=== PATIENT | male | born 1980 | race Caucasian/White ===

== ENCOUNTER → 2020-09-23 11:41 | Outpatient (BNVA) | payer MEDICAID, SELFPAY | PROVIDERS: Visit Provider Nurse Practitioner Family | DX: Z20.828 Contact with and (suspected) exposure to other viral communicable diseases (principal) | CPT/HCPCS: 87635 ==

== ENCOUNTER 2023-04-02 23:07 | Emergency (ER) | payer MEDICAID, SELFPAY ==
[2023-04-02 23:08] VITALS: BMI 33.6
[2023-04-02 23:09] VITALS: BP 120/79; PULSE 81; RESP 16; TEMP 36.5; O2SAT 98
--- NOTE | 2023-04-02 23:15 | XRR_ITS ---
PROCEDURE INFORMATION: Exam: XR Chest Exam date and time: 04/02/2023 11:19 PM Age: 43 years old Clinical indication: Pain; Chest pressure; Additional info: Cp TECHNIQUE: Imaging protocol: Radiologic exam of the chest. Views: 1 view. COMPARISON: CT chest abdpel w/*[id number] 06/29/2017 7:42 PM FINDINGS: Lungs: Right lower lobe atelectasis versus minimal infiltrate suspected. Pleural spaces: Unremarkable. No pleural effusion. No pneumothorax. Heart/Mediastinum: Unremarkable. No cardiomegaly. Bones/joints: Unremarkable. XR/XR chest 1V portable [id number] IMPRESSION: Right lower lobe atelectasis versus minimal infiltrate suspected.
--- NOTE | 2023-04-02 23:16 | ECG_ITS ---
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 Measurements Intervals [place] Rate: 86 P: 16 FL: 165 QRS: 19 QRSD: 90 T: 66 QT: 360 QTc: 433 Interpretive Statements SINUS RHYTHM NONSPECIFIC T-WAVE ABNORMALITY Compared to ECG 12/15/2016 23:44:28 T-wave abnormality now present Electronically Signed On 04-03-2023 16:44:21 CDT by Cameron Adler M.D. [email or web address].[employer]/store/[id number]
[2023-04-02 23:30] VITALS: BP 113/78; PULSE 81; RESP 14; O2SAT 91
[2023-04-02 23:39] LABS: Basophils # 0.1 10^3/uL (0.0-0.1); Basophils % 0.5 %; Eosinophils # 0.2 10^3/uL (0.0-0.8); Eosinophils % 1.2 %; Hematocrit 42.8 % (42.0-52.0); Hemoglobin 14.2 g/dL (11.7-16.6); Lymphocytes # 4.5 10^3/uL (0.8-4.8); Lymphocytes % 36.1 %; Mean Corpuscular HGB Conc 33.2 g/dL (30.0-36.0); Mean Corpuscular Volume 87.3 fl (80-94); Mean Platelet Volume 9.5 fL (7.4-10.4); Monocytes % 7.9 %; Neutrophils # 6.69 10^3/uL (1.8-7.7); Neutrophils % 53.7 %; Nucleated Red Blood Cells % 0 %; Platelet Count 310 10^3/cmm (130-400); Red Cell Distribution Width 14.4 % (12.1-15.1); White Blood Count 12.5 10^3/uL (4.0-10.0)
[2023-04-03] VITALS: BP 127/84; PULSE 84; RESP 16; O2SAT 95
--- NOTE | 2023-04-03 | ED_ITS ---
HPI - Chest Pain General: Chief Complaint: Chest Pain Stated Complaint: CP Time Seen by Provider: 04/02/23 23:11 Source: patient History of Present Illness: 43-year-old male with no prior history of coronary disease. He tells me he had a stress test a few days ago, but does not know the results. He presents with stabbing epigastric/substernal pain while at rest in bed playing with his grandson who is a . No shortness of breath. No nausea or diaphoresis. Pain is down to a 2 out of 10 currently after aspirin in the ambulance. No other medications were given MD complaint: chest pain Pertinent past history: other Onset (ago): hour(s) Timing of current episode: constant Prior episodes: No Onset: during rest Pain location: substernal and epigastric Pain radiation: none Quality: sharp Exacerbating factors: nothing Associated symptoms: Deny diaphoresis, dyspnea, fever(s), leg edema, nausea, palpitations, syncope or vomiting Treatment prior to arrival: aspirin Review of Systems Const: Denies: fever(s) or diaphoresis ENMT: Denies: throat pain Card: Reports: chest pain; Denies: palpitations or syncope Resp: Denies: dyspnea GI: Denies: nausea or vomiting : Denies: flank pain Musc: Reports: other (Right shoulder pain from previous fracture) Skin/Breast: Denies: rash PFS ED PFSH: Social History Smoking and tobacco status: current every day smoker Lives independently: Yes Household members: spouse Marital status: Current occupational status: employed 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 Physical Exam Const: COMMON NORMALS: no acute distress GENERAL APPEARANCE: cooperative; not ill appearing and not frail appearing HENMT: COMMON NORMALS: normocephalic, atraumatic and Normal external nose present HEAD & SCALP: normocephalic and atraumatic FACE & SINUS: normal facial exam and face symmetric NOSE: Normal external nose present Eye: COMMON NORMALS: Equal, round and reactive pupils present and EOMs intact bilaterally PUPIL: Yes Equal, round and reactive pupils present Neck/C-Spine: GENERAL: Yes trachea midline Chest: CHEST: Yes Symmetrical chest wall rise Resp: COMMON NORMALS: normal respiratory effort, No retractions, No use of accessory muscles and clear to auscultation bilaterally AUSCULTATION: clear to auscultation bilaterally Cardio: COMMON NORMALS: regular rate and regular rhythm RATE: regular rate RHYTHM: regular rhythm GI: COMMON NORMALS: Normal to inspection, nondistended, normoactive bowel sounds present Extremity: COMMON NORMALS: no pedal edema Neuro: APRIL COMA SCALE: document GCS findings April coma scale eye opening: Spontaneous April coma scale verbal response: Orientated [place] coma scale motor response: Obey commands April coma scale total score: 15 SENSORY EXAM: Yes extremities (intact) Psych: COMMON NORMALS: speech normal SPEECH: Yes normal speech Skin: COMMON NORMALS: no rashes or lesions noted GENERAL SKIN EXAM: no rashes or lesions noted Course Vital Signs: Vital signs: Vital Signs Temperature 97.7 F 04/02/23 23:09 Pulse Rate 79 04/03/23 02:19 Respiratory Rate 20 H 04/03/23 02:19 Blood Pressure 104/63 04/03/23 02:19 Pulse Oximetry 91 04/03/23 02:19 Oxygen Delivery Me thod Room Air 04/03/23 02:00 MDM - Chest Pain Medical Decision Making Pain is essentially gone at this point. 0-1 out of 10. EKG shows a sinus rhythm with a rate of 80, normal axis, normal intervals, and no acute ST changes. White blood cell count is 12.5. BMP is not remarkable. Liver enzymes are minimally elevated. D-dimer is 0.4. Chest x-ray shows a right lower lobe atelectasis. He has no symptoms of pneumonia including cough etc. He will be allowed discharge. Lab Data 04/02/23 23:29 04/02/23 23:29 Radiology Impressions Chest X-Ray 04/02/23 23:15 IMPRESSION: Right lower lobe atelectasis versus minimal infiltrate suspected. Laboratory Results WBC 12.5 10^3/uL (4.0-10.0) H 04/02/23 23: RBC 4.90 10^6/uL (4.1-5.3) 04/02/23 23: Hgb 14.2 g/dL (11.7-16.6) 04/02/23 23: Hct 42.8 % (42.0-52.0) 04/02/23 23: MCV 87.3 fl (80-94) 04/02/23 23: MCH 29.0 pg (28.0-34.0) 04/02/23: MCHC 33.2 g/dL (30.0-36.0) 04/02/23 RDW 14.4 % (12.1-15.1) 04/02/23 Plt Count 310 10^3/cmm (130-400) 04/02/23 MPV 9.5 fL (7.4-10.4) 04/02/23 Neut % (Auto) 53.7 % 04/02/23: Lymph % (Auto) 36.1 % 04/02/23: [place] % (Auto) 7.9 % 04/02/23 Eos % (Auto) 1.2 % 04/02/23 Baso % (Auto) 0.5 % 04/02/23 Neut # (Auto) 6.69 10^3/uL (1.8-7.7) 04/02/23 Lymph # (Auto) 4.5 10^3/uL (0.8-4.8) 04/02/23 [place] # (Auto) 1.0 10^3/uL (0.2-0.9) H 04/02/23 Eos # (Auto) 0.2 10^3/uL (0.0-0.8) 04/02/23 Baso # (Auto) 0.1 10^3/uL (0.0-0.1) 04/02/23 Nucleated RBC % (auto) 0 % 04/02/23 Nucleated RBCs # 0.0 /100WBC 04/02/23 D-Dimer 0.41 ug/mIFEU (0-0.59) 04/02/23 Sodium 135 mmol/L (136-145) L 04/02/23 Potassium 3.8 mmol/L (3.5-5.1) 04/02/23 Chloride 98 mmol/L (98-107) 04/02/23 Carbon Dioxide 25 mmol/L (22-29) 04/02/23 Anion Gap 15.8 (5-19) 04/02/23 23:29 BUN 12 mg/dL (6-20) 04/02/23 23:29 Creatinine 1.1 mg/dL (0.7-1.2) 04/02/23 23:29 GFR Calculation 72.7 mL/min (90-130) L 04/02/23 23:29 Glucose 101 mg/dL (65-115) 04/02/23 23:29 Calculated Osmolality 280 mOsm/kg (285-295) L 04/02/23 23:29 Calcium 9.4 mg/dL (8.5-10.5) 04/02/23 23:29 Total Bilirubin 0.6 mg/dL (0.15-1.2) 04/02/23 23:29 AST 43 U/L (0-40) H 04/02/23 23: ALT 71 U/L (0-41) H 04/02/23 23:29 Alkaline Phosphatase 72 U/L (40-130) 04/02/23 23:29 Troponin T Baseline 6 ng/L (0-15) 04/02/23 23:29 Troponin T 120 Minute 6.00 ng/L (0-15) 04/03/23 01:22 Delta Troponin T 0 ABS# (0-10) 04/03/23 01:22 NT-Pro-B Natriuret Pep 36 pg/mL (0-125) 04/02/23 23:29 Total Protein 7.4 g/dL (6.6-8.7) 04/02/23 23:29 Albumin 4.3 g/dL (3.5-5.2) 04/02/23 23:29 Globulin 3.1 g/dL (1.3-4.6) 04/02/23 23:29 Discharge Plan Discharge Patient Disposition: Home Clinical Impression: Chest pain Condition: Stable Prescriptions: No Action hydrocodone-acetaminophen 10-325 mg tablet 1 tab PO Q8H PRN Discharge Orders: Discharge ED (Routine); Ordered 04/03/23 Ordered By: Case Parr Referrals: Dior Guerrero APN [Primary Care Provider] - 1-3 days Patient Instructions: Chest Pain (ED), Opioid Safety, Pain Management Activity Restrictions/Additional Instructions: Exact cause of your chest pain was not determined by laboratory work-up or imaging this morning. We encourage you to follow-up with your primary doctor, as well as follow-up with the results of your recent stress test. Return for return of or worsening pain, shortness of breath, fever, other concerning symptoms. Call your doctor later this morning to let them know you were here, they may wish to run more outpatient testing. Coding Level of Care Code ED Road Test Examiner for Raymon Viera
[2023-04-03 00:02] LABS: D Dimer 0.41 ug/mIFEU (0-0.59)
[2023-04-03 00:09] LABS: Troponin(5th) Baseline 6 ng/L (0-15)
[2023-04-03] MEDS: lidocaine 2% viscous 15 ML, aluminum-mag hydrox-simethicon 30 ML, sucralfate oral liq 1 GM PO (00:10)
[2023-04-03 00:19] LABS: Alanine Aminotransferase 71 U/L (0-41); Albumin Level 4.3 g/dL (3.5-5.2); Alkaline Phosphatase 72 U/L (40-130); Anion Gap 15.8 (5-19); Aspartate Amino Transferase 43 U/L (0-40); Blood Urea Nitrogen 12 mg/dL (6-20); Calcium 9.4 mg/dL (8.5-10.5); Carbon Dioxide 25 mmol/L (22-29); Chloride 98 mmol/L (98-107); Globulin 3.1 g/dL (1.3-4.6); Glomerular Filtration Rate 72.7 mL/min (90-130); Glucose 101 mg/dL (65-115); NT Pro B Type Natriuretic Pept 36 pg/mL (0-125); Osmolality Calculated 280 mOsm/kg (285-295); Potassium 3.8 mmol/L (3.5-5.1); Sodium 135 mmol/L (136-145); Total Bilirubin 0.6 mg/dL (0.15-1.2); Total Protein 7.4 g/dL (6.6-8.7)
[2023-04-03 00:30] VITALS: BP 118/87; PULSE 80; RESP 17; O2SAT 95
[2023-04-03 01:00] VITALS: BP 100/69; PULSE 81; RESP 19; O2SAT 92
[2023-04-03] MEDS: ketorolac 30 mg/mL INJ 15 MG IVP (01:12)
[2023-04-03 01:30] VITALS: BP 106/73; PULSE 76; RESP 21; O2SAT 93
--- NOTE | 2023-04-03 01:34 | ECG_ITS ---
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 Measurements Intervals [place] Rate: 79 P: 11 TN: 164 QRS: 33 QRSD: 89 T: 64 QT: 382 QTc: 440 Interpretive Statements SINUS RHYTHM NONSPECIFIC T-WAVE ABNORMALITY Compared to ECG 04/02/2023 23:12:31 No significant changes Electronically Signed On 04-03-2023 16:46:25 CDT by Cameron Adler M.D. [email or web address] county general hospitalLOOKK[facility].ShopEx/store/OM/[id number]
[2023-04-03 02:00] VITALS: BP 97/70; PULSE 78; RESP 19; O2SAT 92
[2023-04-03 02:01] LABS: Troponin 5 2HR Delta 0 ABS# (0-10)
[2023-04-03 02:19] VITALS: BP 104/63; PULSE 79; RESP 20; O2SAT 91
== END 2023-04-03 02:22 | disposition home or self-care (01) ==
PROVIDERS: Emergency Provider Emergency Medicine; PCP Nurse Practitioner Family
DX: R07.9 Chest pain, unspecified (principal)
CPT/HCPCS: 36415; 71045; 80053; 83880; 84484; 85025; 85378; 93005; 96374; 99285; J1885

== ENCOUNTER 2024-07-10 09:16 | Inpatient (IN) | payer MEDICAID, SELFPAY ==
[2024-07-10] VITALS (8 sets, daily range): BP systolic 120–143; BP diastolic 81–101; PULSE 81–106; RESP 17–24; TEMP 36.7–36.8; O2SAT 91–97; BMI 34.2; BMI 34.3
--- NOTE | 2024-07-10 09:24 | CT_ITS ---
WS: [id number] CT ABDOMEN PELVIS TECHNIQUE: Contrast-enhanced CT of the abdomen and pelvis with coronal and sagittal reformatted image s. CLINICAL INFORMATION: abd pain COMPARISON: CT 2017 DLP: 1214.[address] scans at [facility] use at least one of these dose optimization techniques: automated e xposure control; mA and/or kV adjustment per patient size (includes targeted exams where dose is matc hed to clinical indication); or iterative reconstruction. FINDINGS: Hepatomegaly. Diffuse fatty infiltration of the liver. Normal portal vein and splenic vein. Normal sp belia. Normal GE junction. Inflammatory changes and edema about the pancreatic head compatible with ac catherine pancreatitis. No drainable fluid collections. Cholelithiasis. Inflammatory reaction in the duoden al C-loop. Edema in the central mesentery with reactive lymph nodes. Recommend correlation with pancreatic funct ion studies. Portal vein and splenic vein appear patent. Normal spleen. Normal GE junction. Celiac an d SMA are patent. Adrenal glands are normal. Normal renal parenchymal enhancement. No hydronephrosis. Cholelithiasis. Air and fluid distention of the transverse colon suspicious for ileus. No other acute findings. CT/CT abdomen pelvis w con* [id number] IMPRESSION: 1. Findings suspicious for acute pancreatitis. Recommend correlation with panc reatic function studies. 2. Tiny calculus in the gallbladder. 3. Hepatomegaly with diffuse fatty infiltration of the liver. 4. Bibasilar atelectasis. 5. Air and fluid distention of the transverse colon compatible with ileus. Notified Macho Estevez DO at 07/10/2024 10:47 AM.
--- NOTE | 2024-07-10 09:24 | XR_ITS ---
WS: [id number] XR chest 1V portable [id number] REASON FOR EXAM: dyspnea/cough FINDINGS: The heart and mediastinum are within normal limits. Compared to the examination of 04/02/2023, the lungs are hypoexpanded (both diaphragms elevated) and th ere is a moderate area of atelectasis in the left lower lung. No other findings for an acute pulmonar y parenchymal or pleural process is identified. Bony thorax intact without significant abnormality. XR/XR chest 1V portable [id number] IMPRESSION: Hypoexpansion with atelectasis in the left lower lung. No findings of pneumonitis or pulmonary edema.
[2024-07-10 09:57] LABS: Bilirubin Urine Negative (Negative); Blood Urine Negative (Negative); Glucose Urine UA Negative (Normal); Ketones Urine Negative (Negative); Leukocyte Esterase Urine Negative (Negative); Nitrate Urine Negative (Negative); Protein Urine 1+ (Negative); Specific Gravity, Urine 1.017 (1.005-1.030); Urine Appearance Clear (CLEAR); pH Urine 7.5 (5-7)
[2024-07-10 10:00] LABS: Add Urine Microscopic? YES; Bacteria Urine None Seen /hpf; RBC Urine 0-2 /hpf (0-2); Squamous Epithelial Cell Urine 0-5 /hpf (0-5); WBC Urine 0-5 /hpf (0-5)
[2024-07-10 10:02] LABS: Basophils # 0.1 10^3/uL (0.0-0.1); Basophils % 0.3 %; Eosinophils # 0.2 10^3/uL (0.0-0.8); Eosinophils % 1.2 %; Hematocrit 43.1 % (37-53); Lymphocytes # 2.6 10^3/uL (0.8-4.8); Lymphocytes % 14.5 %; Mean Corpuscular HGB Conc 33.2 g/dL (30-55); Mean Corpuscular Hemoglobin 29.7 pg (27-33); Mean Corpuscular Volume 89.6 fl (82-101); Mean Platelet Volume 9.5 fL (7.4-10.4); Monocytes # 1.6 10^3/uL (0.2-0.9); Monocytes % 8.7 %; Neutrophils # 13.37 10^3/uL (1.8-7.7); Neutrophils % 74.8 %; Nucleated Red Blood Cells % 0 %; Platelet Count 322 10^3/cmm (157-399); Red Blood Count 4.81 10^6/uL (3.85-5.65); Red Cell Distribution Width 14.3 % (12.1-15.1); White Blood Count 17.88 10^3/uL (3.29-11.43)
[2024-07-10 10:03] LABS: Urine Color Yellow (Yellow)
--- NOTE | 2024-07-10 10:05 | ECG_ITS ---
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.Birdi/store/[id number]
[2024-07-10 10:19] LABS: Alanine Aminotransferase 58 U/L (0-41); Albumin Level 4.1 g/dL (3.5-5.2); Alkaline Phosphatase 79 U/L (40-130); Anion Gap 14.8 (5-19); Aspartate Amino Transferase 37 U/L (0-40); Blood Urea Nitrogen 16 mg/dL (6-20); Calcium 8.6 mg/dL (8.5-10.5); Carbon Dioxide 28 mmol/L (22-29); Chloride 98 mmol/L (98-107); Creatinine Clr Calc Pharmacy 104.5809; Glomerular Filtration Rate 65.5 mL/min (90-130); Glucose 101 mg/dL (65-115); Lipase 141 U/L (13-60); Osmolality Calculated 285 mOsm/kg (285-295); Potassium 3.8 mmol/L (3.5-5.1); Sodium 137 mmol/L (136-145); Total Bilirubin 1.1 mg/dL (0.15-1.2); Total Protein 7.1 g/dL (6.6-8.7)
--- NOTE | 2024-07-10 10:19 | ED_ITS ---
HPI - Abdominal Pain 2 General: Chief Complaint: Abdominal Pain Stated Complaint: blockage, stomach pain, swelling Time Seen by Provider: 07/10/24 09:22 Source: patient Mode of arrival: ambulatory Limitations: no limitations History of Present Illness: 44-year-old male states that he has been having epigastric abdominal pain for the last 2 to 3 days. States pains been severe in nature rates it a 9 out of 10 he had nausea vomiting as well. He denies any fevers has had some constipation. States pain is much worse with movement and palpation Associated Symptoms: Reports nausea and vomiting; Denies chills, diarrhea, dysuria and fever(s) Related Data Home Medications Medication Instructions Recorded Confirmed hydrocodone 10 mg-acetaminophen 1 tab PO Q8H PRN 11/27/19 11/27/19 325 mg tablet Allergies Allergy/AdvReac Type Severity Reaction Status Date / Time No Known Allergies Allergy Verified 07/10/24 09:28 Review of Systems 2 Const: Denies: fever(s), chills, body aches or change in appetite ENMT: Denies: throat pain or dental pain Card: Denies: chest pain Resp: Denies: dyspnea GI: Reports: abdominal pain, nausea and vomiting; Denies: diarrhea : Denies: dysuria Musc: Denies: neck pain or back pain Skin/Breast: Denies: rash Neuro: Denies: headache(s) PFSH ED 2 PFSH: Social History Smoking and tobacco/nicotine status: current every day tobacco/nicotine user Lives independently: Yes Household members: spouse Marital status: Current occupational status: employed 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 Physical Exam 2 Const: COMMON NORMALS: no acute distress, patient oriented x3 and healthy appearing HENMT: COMMON NORMALS: normocephalic and atraumatic HEAD & SCALP: n ormocephalic and atraumatic Neck/C-Spine: COMMON NORMALS: full ROM and supple Chest: COMMONS NORMALS: normal inspection of the chest Resp: COMMON NORMALS: normal respiratory effort, No retractions, No use of accessory muscles and clear to auscultation bilaterally AUSCULTATION: clear to auscultation bilaterally Cardio: COMMON NORMALS: regular rate, regular rhythm and No murmurs present (Cardio) RATE: regular rate RHYTHM: regular rhythm GI: OTHER: Distended abdomen with diffuse tenderness Extremity: COMMON NORMALS: normal to inspection and full ROM Neuro: COMMON NORMALS: patient oriented x3, moves all extremities and no focal motor deficits Psych: COMMON NORMALS: mental status grossly normal, Normal thought process present and cooperative THOUGHT PROCESS: Normal thought process present Skin: COMMON NORMALS: no rashes or lesions noted and no wounds GENERAL SKIN EXAM: no rashes or lesions noted Course 2 Vital Signs: Vital signs: Vital Signs Temperature 98.0 F 07/10/24 09:19 Pulse Rate 81 07/10/24 12:15 Respiratory Rate 24 H 07/10/24 12:15 Blood Pressure 120/92 07/10/24 11:47 Pulse Oximetry 95 07/10/24 12:15 Oxygen Delivery Me thod Room Air 07/10/24 11:47 MDM - Abdominal Pain Medical Decision Making Patient presents for abdominal pain he is found to have a pancreatitis ultrasound showed no signs of cholecystitis I did speak to the hospitalist will admit at this time for pain control and IV fluids Medical Records I reviewed the patient's medical records. Lab Data I reviewed the patient's lab results. 07/10/24 09:39 07/10/24 09:39 Labs/Radiology: Radiology Impressions Abdomen/Pelvis CT 07/10/24 09:24 IMPRESSION: 1. Findings suspicious for acute pancreatitis. Recommend correlation with pancreatic function studies. 2. Tiny calculus in the gallbladder. 3. Hepatomegaly with diffuse fatty infiltration of the liver. 4. Bibasilar atelectasis. 5. Air and fluid distention of the transverse colon compatible with ileus. Notified Macho Estevez DO at 07/10/2024 10:47 AM. Chest X-Ray 07/10/24 09:24 IMPRESSION: Hypoexpansion with atelectasis in the left lower lung. No findings of pneumonitis or pulmonary edema. Gallbladder Ultrasound 07/10/24 10:25 IMPRESSION: Difficult study due to bowel gas and stool 1. Hepatomegaly with diffuse fatty infiltration of the liver. 2. Gallbladder appears normal. Tiny gallstone seen on CT not well seen on this study. Normal common bile duct. 3. No hydronephrosis in the RIGHT kidney. Laboratory Results WBC 17.88 10^3/uL (3.29-11.43) H 07/10/24 09:39 RBC 4.81 10^6/uL (3.85-5.65) 07/10/24 09:39 Hgb 14.30 g/dL (11.27-16.99) 07/10/24 09:39 Hct 43.1 % (37-53) 07/10/24 09:39 MCV 89.6 fl (82-101) 07/10/24 09:39 MCH 29.7 pg (27-33) 07/10/24 09:39 MCHC 33.2 g/dL (30-55) 07/10/24 09:39 RDW 14.3 % (12.1-15.1) 07/10/24 09:39 Plt Count 322 10^3/cmm (157-399) 07/10/24 09:39 MPV 9.5 fL (7.4-10.4) 07/10/24 09:39 Neut % (Auto) 74.8 % 07/10/24 09:39 Lymph % (Auto) 14.5 % 07/10/24 09:39 [place] % (Auto) 8.7 % 07/10/24 09:39 Eos % (Auto) 1.2 % 07/10/24 09:39 Baso % (Auto) 0.3 % 07/10/24 09:39 Neut # (Auto) 13.37 10^3/uL (1.8-7.7) H 07/10/24 09:39 Lymph # (Auto) 2.6 10^3/uL (0.8-4.8) 07/10/24 09:39 [place] # (Auto) 1.6 10^3/uL (0.2-0.9) H 07/10/24 09:39 Eos # (Auto) 0.2 10^3/uL (0.0-0.8) 07/10/24 09:39 Baso # (Auto) 0.1 10^3/uL (0.0-0.1) 07/10/24 09:39 Nucleated RBC % (auto) 0 % 07/10/24 09:39 Nucleated RBCs # 0.0 /100WBC 07/10/24 09:39 Sodium 137 mmol/L (136-145) 07/10/24 09:39 Potassium 3.8 mmol/L (3.5-5.1) 07/10/24 09:39 Chloride 98 mmol/L (98-107) 07/10/24 09:39 Carbon Dioxide 28 mmol/L (22-29) 07/10/24 09:39 Anion Gap 14.8 (5-19) 07/10/24 09:39 BUN 16 mg/dL (6-20) 07/10/24 09:39 Creatinine 1.2 mg/dL (0.7-1.2) 07/10/24 09:39 GFR Calculation 65.5 mL/min (90-130) L 07/10/24 09:39 Glucose 101 mg/dL (65-115) 07/10/24 09:39 Calculated Osmolality 285 mOsm/kg (285-295) 07/10/24 09:39 Lactic Acid 1.3 mmol/L (0.5-2.2) 07/10/24 09:39 Calcium 8.6 mg/dL (8.5-10.5) 07/10/24 09:39 Total Bilirubin 1.1 mg/dL (0.15-1.2) 07/10/24 09:39 AST 37 U/L (0-40) 07/10/24 09:39 ALT 58 U/L (0-41) H 07/10/24 09:39 Alkaline Phosphatase 79 U/L (40-130) 07/10/24 09:39 Total Protein 7.1 g/dL (6.6-8.7) 07/10/24 09:39 Albumin 4.1 g/dL (3.5-5.2) 07/10/24 09:39 Globulin 3.0 g/dL (1.3-4.6) 07/10/24 09:39 Triglycerides 274 mg/dL (0-150) H 07/10/24 09:39 Lipase 141 U/L (13-60) H 07/10/24 09:39 Urine Color Yellow (Yellow) 07/10/24 09:45 Urine Appearance Clear (CLEAR) 07/10/24 09:45 Urine pH 7.5 (5-7) 07/10/24 09:45 Ur Specific [place] 1.017 (1.005-1.030) 07/10/24 09:45 Urine Protein 1+ (Negative) A 07/10/24 09:45 Urine Glucose (UA) Negative (Normal) 09/11/24 09:45 Urine Ketones Negative (Negative) 07/10/24 09:45 Urine Blood Negative (Negative) 07/10/24 09:45 Urine Nitrate Negative (Negative) 07/10/24 09:45 Urine Bilirubin Negative (Negative) 07/10/24 09:45 Urine Urobilinogen 1.0 mg/dL (Negative) 07/10/24 09:45 Ur Leukocyte Esterase Negative (Negative) 07/10/24 09:45 Urine RBC 0-2 /hpf (0-2) 07/10/24 09:45 Urine WBC 0-5 /hpf (0-5) 07/10/24 09:45 Ur Squamous Epith Cells 0-5 /hpf (0-5) 07/10/24 09:45 Amorphous Sediment Not Reportable 07/10/24 09:45 Urine Bacteria None seen /hpf (NONE) 07/10/24 09:45 Hyaline Casts 0.40 /lpf 07/10/24 09:45 All radiology interpretation(s) finalized by discharge EKG Data EKG 1: I personally reviewed and interpreted this EKG as follows: EKG interpretation date: 07/10/24 EKG interpretation time: 10:05 Interpretation: nsr hr [address] elevation qrs 77 qtc 373 Discharge Plan Discharge Patient Disposition: Admitted As Inpatient Clinical Impression: Pancreatitis Condition: Stable Coding Level of Care Code ED Die Keeper for Raymon Viera
[2024-07-10 10:22] LABS: Lactic Sepsis W/Reflex 1.3 mmol/L (0.5-2.2)
--- NOTE | 2024-07-10 10:25 | US_ITS ---
WS: [id number] ULTRASOUND ABDOMEN LIMITED CLINICAL INFORMATION: ruq pain COMPARISON: CT 07/10/2024 FINDINGS: Liver Size: Hepatomegaly Craniocaudal length: 19.5 cm. Echogenicity: Coarse Surface nodularity: None. Mass (size and location): None. Bile ducts Intrahepatic ducts: Normal. Common bile duct diameter: 0.5 cm. Gallbladder Normal. Gallstones: None. Gallbladder sludge: None. Gallbladder wall thickening: None. Pericholecystic fluid: None. Sonographic Elias sign: Absent. Pancreas Normal as visualized. Right kidney: Normal. Hydronephrosis: None. Size: 11.6 cm x 6.5 cm x 6.1 cm. Abdominal aorta and IVC Visualized portions are normal. Ascites: None. US/US gall bladder [id number] IMPRESSION: Difficult study due to bowel gas and stool 1. Hepatomegaly with diffuse fatty infiltration of the liver. 2. Gallbladder appears normal. Tiny gallstone seen on CT not well seen on this study. Normal common bile duct. 3. No hydronephrosis in the RIGHT kidney.
[2024-07-10] MEDS: iohexol 350 mg/mL 500 mL Btl (per mL) IV (10:26)
[2024-07-10] MEDS: ondansetron 2 mg/ML SDV 2 mL 4 MG IVP (11:18)
[2024-07-10] MEDS: HYDROmorphone 1 mg/mL INJ 1 mL IVP (11:18)
--- NOTE | 2024-07-10 11:28 | PC.NURSE ---
PATIENT PLACED ON 2 L NC AFTER NARCOTICS ADMIN
[2024-07-10] MEDS: sodium chloride 0.9% 1,000 ML 999 ML IV (12:09)
[2024-07-10 12:28] LABS: Triglycerides 274 mg/dL (0-150)
--- NOTE | 2024-07-10 12:44 | P.HP_ITS ---
Providers/Chief Complaint 2 Primary Care Provider: Dior Guerrero APN Chief Complaint: blockage, stomach pain, swelling History of Present Illness 44-year-old gentleman with history of CAD, hypercholesterolemia, smoking, B12 deficiency, started having sharp abdominal pain on Monday while sitting in his chair, came into [facility] where he was admitted and treated for pancreatitis and bowel obstruction, he had no LOC with a bowel movement despite receiving enema, and states due to pain was given morphine. He has not had vomiting. He left [facility] and came here instead. Respiratory 24. Leukocytosis 17.8. With hypoxia on presentation started on nasal cannula oxygen. Lipase 141. Triglycerides 274. Chest x-ray with hyperexpansion without pneumonitis or pulmonary edema. CT abdomen pelvis suspicious for acute pancreatitis, tiny gallstone in the gallbladder. Hepatomegaly with diffuse fatty infiltration. Bibasilar atelectasis. Air and fluid distention of the transverse colon compatible with ileus. He states he has been quite uncomfortable with abdominal distention, periumbilical and epigastric abdominal pain. He has not had a bowel movement, has not been passing flatus. He has not had any past abdominal surgery. Never had a colonoscopy. Review of Systems 2 Const: Denies: fever(s) or chills Card: Denies: chest pain, edema or pre-syncope Resp: Reports: dyspnea GI: Reports: abdominal pain, constipation, bloating and other; Denies: nausea, vomiting, diarrhea, hematochezia or melena : Denies: flank pain, difficulty urinating, urinary frequency or hematuria Endo: Denies: polyuria or polydipsia Medications/Allergies Home Medications Medication Instructions Recorded Confirmed Last Taken Type aspirin 81 mg tablet,delayed 81 mg PO QAM 07/10/24 07/10/24 07/08/24 History release cyanocobalamin (vitamin B-12) 100 100 mcg PO QAM 07/10/24 07/10/24 07/08/24 History mcg tablet (Vitamin B-12) diclofenac sodium 75 mg 75 mg PO BID PRN Pain 07/10/24 07/10/24 07/08/24 History tablet,delayed release fenofibrate nanocrystallized 145 145 mg PO QAM 07/10/24 07/10/24 07/08/24 History mg tablet lisinopril 20 1 tab PO QAM 07/10/24 07/10/24 07/08/24 History mg-hydrochlorothiazide 25 mg tablet loratadine 10 mg tablet 10 mg PO QAM 07/10/24 07/10/24 07/08/24 History multivit,calcium,min-folic acid 1 tab PO QAM 07/10/24 07/10/24 07/08/24 History 240 mcg-D3 25 mcg-lycop 300 mcg tablet (One A Day Men Complete) omega 8-jea-wxs-fish oil 1,000 mg 1 cap PO DAILY 07/10/24 07/10/24 07/08/24 History (120 mg-180 mg) capsule (Fish Oil) omeprazole 40 mg capsule,delayed 40 mg PO BID 07/10/24 07/10/24 07/08/24 History release Allergies Allergy/AdvReac Type Severity Reaction Status Date / Time No Known Allergies Allergy Verified 07/10/24 09:28 PFSH Acute 2 PFSH: Medical History (Updated 07/10/24 @ 12:48 by Nabil Valenzuela MD) HLD (hyperlipidemia) CAD (coronary artery disease) Social History (Updated 07/10/24 @ 12:46 by Nabil Valenzuela MD) Smoking and tobacco/nicotine status: current every day tobacco/nicotine user Alcohol intake: current Alcohol intake frequency: holidays/special occasions only Substance/Drug Use: never Lives independently: Yes Household members: spouse Marital status: Current occupational status: employed 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 Const: COMMON NORMALS: patient oriented x3 and alert GENERAL APPEARANCE: c ooperative ORIENTATION/CONSCIOUSNESS: Yes awake HENMT: COMMON NORMALS: oropharynx normal Neck/C-Spine: COMMON NORMALS: no JVD Resp: COMMON NORMALS: normal respiratory effort and clear to auscultation bilaterally AUSCULTATION: clear to auscultation bilaterally Cardio: COMMON NORMALS: no JVD, regular rhythm, S1 normal heart sound present, S2 normal heart sound present and No murmurs present (Cardio) RHYTHM: regular rhythm HEART SOUNDS: S1 normal heart sound present and S2 normal heart sound present GI: COMMON NORMALS: Soft to palpation INSPECTION: Yes abdominal distension AUSCULTATION: Yes Hypoactive bowel sounds present PALPATION: Yes Soft to palpation Extremity: COMMON NORMALS: no joint enlargement and no pedal edema Neuro: COMMON NORMALS: patient oriented x3 and moves all extremities S ENSORIUM/ORIENTATION: Yes alert Skin: COMMON NORMALS: no rashes or lesions noted GENERAL SKIN EXAM: no rashes or lesions noted Data 07/10/24 09:39 07/10/24 09:39 A&P Assessment and plan (1) Ileus: Acute pancreatitis with major comorbidity with ileus. Ileus likely secondary to pancreatitis itself, inflammatory changes, pain, as well as opioids with him receiving morphine at the outside facility. Has received hydromorphone here. Discussed with him avoiding further opioids, if needed acetaminophen, Toradol for pain control. Monitor for risk of worsening gastritis with NSAID. IV PPI twice daily. At current time bowel rest with clear liquids, gentle IV hydration. Had been receiving IV fluids at outside facility. Currently does not appear fluid overloaded, but monitor for risk of fluid overload with IV fluids. Ambulate, discussed with him need for frequent ambulation while up on the medical floor. Dulcolax suppository. Ileus noted in transverse colon on CT. Had received enema at outside hospital without success. Depending on his response may have to escalate to decompression with NGT, rectal tube as per discussion with him, but trial of conservative measures first due to risks. Reviewed vitals, CBC, noted leukocytosis. He is afebrile. Reviewed CMP, UA, CT abdomen pelvis, gallbladder ultrasound. Reviewed EKG, on my interpretation sinus rhythm, pending official read. Reviewed ER note, discussed with ER provider. (2) Pseudoobstruction of colon: He has not had any bowel movement, no success with an enema, has not been passing flatus, significant abdominal distention which is quite bothersome to him, also causing dyspnea, new oxygen requirement of 2 L in the ER with hypoventilation, hyperexpansion of lower lungs noted on x-ray. He has never had a colonoscopy. Denies abdominal surgeries. Suspected ileus multifactorial secondary to acute pancreatitis, pain, as well as opioids. Additional management as above. Add incentive spirometer as well. (3) Pancreatitis: Reviewed CBC, CMP, lipase, noted elevated 141. Reviewed triglycerides, noted 274. Reviewed CT abdomen pelvis, noted tiny gallstone in the gallbladder. Reviewed gallbladder ultrasound, noted without CBD dilation or sign of obstruction. He denies drinking more than occasionally. No hypercalcemia. So far unclear cause of pancreatitis. Possibly related to smoking, but would benefit from follow-up with gastroenterology to further assess for other causes. At current time conservative management, avoid opioids due to symptomatic ileus as above with bowel pseudoobstruction, unable to take any oral intake. IV hydration. Monitor for fluid overload. Sips chips, medications for now with bowel rest. Reassess lipase. Pain control with Tylenol, Toradol as needed. Avoid opioids. Plan Chronic NSAID use: Discussed with him to discontinue chronic diclofenac. For now we will transition PPI to IV twice daily. He had been taking diclofenac since having surgery on his right shoulder 7 weeks ago. Smoking addiction: Discussed smoking cessation with him for 5 minutes, he is not willing to quit at this time. He is willing to have nicotine replacement for cravings with nicotine patches, lozenges. Attestations 2 Medical Necessity Statement*: Admission of over 2 midnights anticipated for assessment of management of acute pancreatitis with major comorbidity with ileus, bowel pseudoobstruction, Diagnoses Ileus K56.7 Pseudoobstruction of colon K59.81 Pancreatitis K85.90
[2024-07-10] MEDS: nicotine 21 mg Patch 1 PATCH TRANSDERMA (14:48)
[2024-07-10] MEDS: bisacodyl 10 mg Supp PR ×2 (14:48→18:06)
[2024-07-10] MEDS: lactated ringers 1,000 ML 75 ML IV (14:48)
[2024-07-10] MEDS: ketorolac 30 mg/mL INJ IVP ×2 (14:49→20:49)
[2024-07-10] MEDS: pantoprazole 40 mg SDV IVP (14:49)
--- NOTE | 2024-07-10 16:53 | PC.NURSE ---
Patient has ambulated 6-8 laps. Has had a small and moderate bowel movement, brown and soft. Complains after ambulating abdomen is tight. Patient has been belching and passing gas at this point.
[2024-07-11] VITALS (7 sets, daily range): BP systolic 115–146; BP diastolic 64–90; PULSE 71–95; RESP 16–26; TEMP 36.4–37.1; O2SAT 92–99
[2024-07-11] MEDS: ondansetron 2 mg/ML SDV 2 mL 4 MG IVP ×2 (02:05→14:55)
[2024-07-11] MEDS: pantoprazole 40 mg SDV IVP ×2 (02:05→13:29)
[2024-07-11] MEDS: ketorolac 30 mg/mL INJ IVP ×3 (02:37→14:30)
[2024-07-11] MEDS: lactated ringers 1,000 ML 75 ML IV ×2 (02:39→13:29)
[2024-07-11 05:03] LABS: Basophils # 0.1 10^3/uL (0.0-0.1); Basophils % 0.3 %; Eosinophils # 0.3 10^3/uL (0.0-0.8); Eosinophils % 1.6 %; Hematocrit 38.9 % (37-53); Lymphocytes # 2.3 10^3/uL (0.8-4.8); Lymphocytes % 13.6 %; Mean Corpuscular HGB Conc 33.2 g/dL (30-55); Mean Corpuscular Hemoglobin 30.6 pg (27-33); Mean Corpuscular Volume 92.4 fl (82-101); Mean Platelet Volume 9.6 fL (7.4-10.4); Monocytes # 1.5 10^3/uL (0.2-0.9); Monocytes % 9.1 %; Neutrophils # 12.47 10^3/uL (1.8-7.7); Neutrophils % 74.9 %; Nucleated Red Blood Cells % 0 %; Platelet Count 290 10^3/cmm (157-399); Red Blood Count 4.21 10^6/uL (3.85-5.65); Red Cell Distribution Width 14.3 % (12.1-15.1); White Blood Count 16.66 10^3/uL (3.29-11.43)
[2024-07-11 05:26] LABS: Alanine Aminotransferase 41 U/L (0-41); Albumin Level 3.6 g/dL (3.5-5.2); Alkaline Phosphatase 87 U/L (40-130); Aspartate Amino Transferase 28 U/L (0-40); Blood Urea Nitrogen 17 mg/dL (6-20); Calcium 8.5 mg/dL (8.5-10.5); Carbon Dioxide 23 mmol/L (22-29); Chloride 100 mmol/L (98-107); Creatinine Clr Calc Pharmacy 114.0883; Globulin 2.9 g/dL (1.3-4.6); Glomerular Filtration Rate 72.4 mL/min (90-130); Glucose 94 mg/dL (65-115); Lipase 49 U/L (13-60); Magnesium 2.3 mg/dL (1.7-2.3); Osmolality Calculated 283 mOsm/kg (285-295); Phosphorus 2.8 mg/dL (2.5-4.5); Sodium 136 mmol/L (136-145); Total Bilirubin 0.9 mg/dL (0.15-1.2); Total Protein 6.5 g/dL (6.6-8.7)
[2024-07-11 05:27] LABS: Anion Gap 16.7 (5-19); Potassium 3.7 mmol/L (3.5-5.1)
[2024-07-11] MEDS: nicotine 21 mg Patch 1 PATCH TRANSDERMA (08:21)
[2024-07-11] MEDS: lisinopril 20 mg Tablet PO (08:22)
[2024-07-11] MEDS: bisacodyl 10 mg Supp PR ×2 (08:22→17:55)
--- NOTE | 2024-07-11 15:06 | P.PN_ITS ---
Subjective 2 Subjective: This morning ambulating in the hallway, has passed flatus and reporting improvement in abdominal distention. Reports having hunger pains and would like to advance diet. Vitals/I&O/Wt Last Vital Signs Temp 98.2 F 07/11/24 12:00 Pulse 82 07/11/24 12:00 Resp 16 07/11/24 12:00 BP 146/88 07/11/24 12:00 Pulse Ox 96 07/11/24 12:00 O2 Del Method Room Air 07/11/24 12:00 07/11/24 07/11/24 07/11/24 06:59 14:59 22:59 Intake Total 1100 / 2200 1212.5 / 1212.5 Balance 1100 / 2200 1212.5 / 1212.5 Weight last 48 hrs Weight 117.934 kg Weight 117.962 kg Weight 117.934 kg Physical Exam 2 Narrative: Ambulating in the hallway. Const: COMMON NORMALS: patient oriented x3 and alert GENERAL APPEARANCE: c ooperative ORIENTATION/CONSCIOUSNESS: Yes awake HENMT: COMMON NORMALS: oropharynx normal Neck/C-Spine: COMMON NORMALS: no JVD Resp: COMMON NORMALS: normal respiratory effort Cardio: COMMON NORMALS: no JVD GI: COMMON NORMALS: Soft to palpation INSPECTION: Yes abdominal distension AUSCULTATION: Yes Hypoactive bowel sounds present PALPATION: Yes Soft to palpation Extremity: COMMON NORMALS: no joint enlargement and no pedal edema Neuro: COMMON NORMALS: patient oriented x3 and moves all extremities S ENSORIUM/ORIENTATION: Yes alert Skin: COMMON NORMALS: no rashes or lesions noted GENERAL SKIN EXAM: no rashes or lesions noted Data 07/11/24 04:10 07/11/24 04:10 A&P Assessment and plan (1) Ileus: Had passed flatus last night and today. Has been ambulating. Reporting improved abdominal distention. Reporting hunger pains would like to advance diet. Trial of clear liquid started. Noted he also had a bowel movement. However, this afternoon I received a call that he had had worsening distention after clear liquids and had emesis with fecal odor. Requested NGT placement with light intermittent suction, discussed with the surgeon. Requested additional scan with IV and p.o. contrast to be given after about an hour on suction. Monitor for risk of acute kidney injury, contrast nephropathy with contrast study. Will downgrade diet back to n.p.o. for now. Ambulation as tolerating. Acute pancreatitis with major comorbidity with ileus. Pancreatitis improving. Ileus likely secondary to pancreatitis itself, inflammatory changes, pain, as well as opioids with him receiving morphine at the outside facility. Has received hydromorphone here. Discussed with him avoiding further opioids, if needed acetaminophen, Toradol for pain control. Monitor for risk of worsening gastritis with NSAID. IV PPI twice daily. At current time bowel rest with clear liquids, gentle IV hydration. Had been receiving IV fluids at outside facility. Currently does not appear fluid overloaded, but monitor for risk of fluid overload with IV fluids. Ambulate, discussed with him need for frequent ambulation while up on the medical floor. Dulcolax suppository. Ileus noted in transverse colon on CT. Had received enema at outside hospital without success. Depending on his response may have to escalate to decompression with NGT, rectal tube as per discussion with him, but trial of conservative measures first due to risks. Reviewed vitals, CBC, noted leukocytosis. He is afebrile. Reviewed CMP, UA, CT abdomen pelvis, gallbladder ultrasound. Reviewed EKG, on my interpretation sinus rhythm, pending official read. Reviewed ER note, discussed with ER provider. (2) Pseudoobstruction of colon: Additional assessment for possible complete obstruction as above. Continue IV hydration. Did not tolerate trial of oral diet. He has not had any bowel movement, no success with an enema, has not been passing flatus, significant abdominal distention which is quite bothersome to him, also causing dyspnea, new oxygen requirement of 2 L in the ER with hypoventilation, hyperexpansion of lower lungs noted on x-ray. He has never had a colonoscopy. Denies abdominal surgeries. Suspected ileus multifactorial secondary to acute pancreatitis, pain, as well as opioids. Additional management as above. Add incentive spirometer as well. (3) Pancreatitis: Reviewed vitals, CBC. Still leukocytosis 16. Reviewed lipase, normalized. Reviewed kidney function, BUN 17, creatinine 1.1. Continue IV hydration. Trial of oral diet was not tolerated. Reviewed CBC, CMP, lipase, noted elevated 141. Reviewed triglycerides, noted 274. Reviewed CT abdomen pelvis, noted tiny gallstone in the gallbladder. Reviewed gallbladder ultrasound, noted without CBD dilation or sign of obstruction. He denies drinking more than occasionally. No hypercalcemia. So far unclear cause of pancreatitis. Possibly related to smoking, but would benefit from follow-up with gastroenterology to further assess for other causes. At current time conservative management, avoid opioids due to symptomatic ileus as above with bowel pseudoobstruction, unable to take any oral intake. IV hydration. Monitor for fluid overload. Sips chips, medications for now with bowel rest. Reassess lipase. Pain control with Tylenol, Toradol as needed. Avoid opioids. Plan Chronic NSAID use: Discussed with him to discontinue chronic diclofenac. For now we will transition PPI to IV twice daily. He had been taking diclofenac since having surgery on his right shoulder 7 weeks ago. Smoking addiction: Discussed smoking cessation with him for 5 minutes, he is not willing to quit at this time. He is willing to have nicotine replacement for cravings with nicotine patches, lozenges. Attestations 2 Medical Necessity Statement*: Continue admission for assessment and management of bowel obstruction, ileus, feculent vomiting, intolerance of oral intake, recovering from pancreatitis. Diagnoses Ileus K56.7 Pseudoobstruction of colon K59.81 Pancreatitis K85.90
--- NOTE | 2024-07-11 15:28 | XRR_ITS ---
PROCEDURE INFORMATION: Exam: XR Chest Exam date and time: 07/11/2024 3:50 PM Age: 44 years old Clinical indication: Device placement; Ng tube; Additional info: Ng tube placement TECHNIQUE: Imaging protocol: Radiologic exam of the chest. Views: 1 view. COMPARISON: CR XR chest 1V portable [id number] 07/10/2024 9:30 AM FINDINGS: Lungs: No focal consolidation. Left-sided platelike atelectasis noted. Pleural spaces: No evidence of pneumothorax. No evidence of pleural effusion. Heart/Mediastinum: Enteric tube in place with tip in the region of the gastric body. Side hole is not clearly visualized. Consider advancing approximately 2-3 cm and repeating the radiograph. Bones/joints: No evidence of acute osseous abnormality. XR/XR chest 1V portable [id number] IMPRESSION: 1. Enteric tube in place with tip in the region of the gastric body. Side hole is not clearly visualized. Consider advancing approximately 2-3 cm and repeating the radiograph.
--- NOTE | 2024-07-11 15:46 | PC.NURSE ---
This nurse and SN Mahendra placed 18 [place]ian NG tube in the L nare. The patient tolerated the procedure poorly and gagged multiple times, but ceased gagging after producing small amounts of emesis several times. Shortly afterward the patient began stating he couldn't breathe. This nurse went into the room and assessed the patient, he was red in the face, breathing shallow and quickly with a RR of 26, and stating he couldn't breathe. Vitals at this time were: SpO2 99% on room air, BP 140/90, HR 95. This nurse contacted Dr. Valenzuela via phone call and notified him of the change in patient status and received orders to administer ativan 1mg IVP ONCE. Dr. Valenzuela then came to assess and speak to the patient.
[2024-07-11] MEDS: LORazepam 2 mg/mL INJ 1 mL 1 MG IVP (16:02)
[2024-07-11] MEDS: acetaminophen 325 mg Tablet 650 MG PO (18:01)
--- NOTE | 2024-07-11 18:17 | PM.CONSULT ---
Providers/Reason For Consult Consulting Physician/Specialty*: General surgery/ Dr Choi Reason for Consult*: pancreatitis Attending Physician: Nabil Valenzuela Primary Care Provider: Dior Guerrero APN History of Present Illness History of Present Illness Mohan Isabel is a 44 year old male who presents with several days of diffuse abdominal pain, nausea, and vomiting. Patient was transferred from another facility where he intermittently tolerated PO intake. At [facility] he was able to have a BM and has been passing gas. No vomiting. No relevant PSH. Today he failed clears and general surgery was consulted. Patient does have a leukocytosis of 16k, predominantly epigastric pain on exam, and a CT scan which does show stranding of the retroperitoneum and hazziness of the pancreas. Pancreatic enzymes WNL. He does have cholelithiasis and presents with hypertriglyceridemia. Her mother has a history of recurrent pancreatitis even after a cholecystectomy. Patient hasn't started any meds recently, no travel. History obtained from mother mostly. Medications/Allergies Home Medications Medication Instructions Recorded Confirmed Last Taken Type aspirin 81 mg tablet,delayed 81 mg PO QAM 07/10/24 07/10/24 07/08/24 History release cyanocobalamin (vitamin B-12) 100 100 mcg PO QAM 07/10/24 07/10/24 07/08/24 History mcg tablet (Vitamin B-12) diclofenac sodium 75 mg 75 mg PO BID PRN Pain 07/10/24 07/10/24 07/08/24 History tablet,delayed release fenofibrate nanocrystallized 145 145 mg PO QAM 07/10/24 07/10/24 07/08/24 History mg tablet lisinopril 20 1 tab PO QAM 07/10/24 07/10/24 07/08/24 History mg-hydrochlorothiazide 25 mg tablet loratadine 10 mg tablet 10 mg PO QAM 07/10/24 07/10/24 07/08/24 History multivit,calcium,min-folic acid 1 tab PO QAM 07/10/24 07/10/24 07/08/24 History 240 mcg-D3 25 mcg-lycop 300 mcg tablet (One A Day Men Complete) omega 2-nyn-kkz-fish oil 1,000 mg 1 cap PO DAILY 07/10/24 07/10/24 07/08/24 History (120 mg-180 mg) capsule (Fish Oil) omeprazole 40 mg capsule,delayed 40 mg PO BID 07/10/24 07/10/24 07/08/24 History release Allergies Allergy/AdvReac Type Severity Reaction Status Date / Time No Known Allergies Allergy Verified 07/10/24 09:28 Current Medications Generic Name Dose Route Start Last Admin Trade Name Freq PRN Reason Stop Dose Admin Acetaminophen 650 mg 07/10/24 13:44 07/11/24 18:01 Acetaminophen 325 Mg Tablet PO 650 mg Q6H PRN Administration Mild/Mod Pain Or Temp >/= 101 Aspirin 81 mg 07/11/24 06:00 07/11/24 04:16 Aspirin 81 Mg Ec Tablet PO Not Given QAM DANI Bisacodyl 10 mg 07/10/24 13:44 07/11/24 17:55 Bisacodyl 10 Mg Supp IA 10 mg BID DANI Administration Lactated Ringer's 1,000 mls @ 75 mls/hr 07/10/24 13:44 07/11/24 13:29 Lactated Ringers IV 75 mls/hr .[id number] DANI Administration Ketorolac Tromethamine 30 mg 07/10/24 13:44 07/11/24 14:30 Ketorolac 30 Mg/Ml Inj IVP 07/15/24 13:43 30 mg Q6H PRN Administration MODERATE PAIN Lisinopril 20 mg 07/11/24 09:00 07/11/24 08:22 Lisinopril 20 Mg Tablet PO 20 mg DAILY DANI Administration Nicotine 1 patch 07/10/24 13:44 07/11/24 08:21 Nicotine 21 Mg Patch TRANSDERMA 1 patch DAILY DANI Administration Ondansetron HCl 4 mg 07/10/24 13:44 07/11/24 14:55 Ondansetron 2 Mg/Ml Sdv 2 Ml IVP 4 mg Q8H PRN Administration vomiting, or N/V if npo Pantoprazole Sodium 40 mg 07/10/24 13:44 07/11/24 13:29 Pantoprazole 40 Mg Sdv IVP 40 mg Q12H DANI Administration PFSH Acute PFSH: Medical History (Updated 07/10/24 @ 12:48 by Nabil Valenzuela MD) HLD (hyperlipidemia) CAD (coronary artery disease) Social History (Updated 07/10/24 @ 12:46 by Nabil Valenzuela MD) Smoking and tobacco/nicotine status: current every day tobacco/nicotine user Alcohol intake: current Alcohol intake frequency: holidays/special occasions only Substance/Drug Use: never Lives independently: Yes Household members: spouse Marital status: Current occupational status: employed 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 Data 07/11/24 04:10 07/11/24 04:10 A&P Assessment and plan (1) Pancreatitis: Plan 44yo male who presents with several days of diffuse abdominal pain, nausea and vomiting. Although pancreatic enzymes are WNL, patient does present with 2/3 criteria consistent with pancreatitis (imaging & clinical picture). He does have cholelithiasis which could be the culprit. There could also be a familial component. At this time I recommend bowel rest (NPO), IVF resuscitation, minimize narcotics, correct electrolyte derrangements. We can repeat a CT AP with IV contrast in 2 days. No need for NGT at this time. Since he is not obstructed I have cancelled katherine's CT scan with enteric contrast. Coding Level of Care Code 87674 Diagnoses Pancreatitis K85.90 Time Spent (min) 45
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
[2024-07-12] VITALS: BP 136/68; PULSE 86; RESP 18; TEMP 36.8; O2SAT 92
[2024-07-12] MEDS: pantoprazole 40 mg SDV IVP ×2 (02:07→13:46)
[2024-07-12] MEDS: ketorolac 30 mg/mL INJ IVP ×2 (03:20→09:46)
[2024-07-12] MEDS: lactated ringers 1,000 ML 75 ML IV ×2 (03:23→15:25)
[2024-07-12] MEDS: ondansetron 2 mg/ML SDV 2 mL 4 MG IVP (03:34)
[2024-07-12 04:00] VITALS: BP 111/70; PULSE 88; RESP 17; TEMP 36.7; O2SAT 92
[2024-07-12 04:43] LABS: Basophils # 0.1 10^3/uL (0.0-0.1); Basophils % 0.4 %; Eosinophils # 0.4 10^3/uL (0.0-0.8); Eosinophils % 2.6 %; Hematocrit 35.6 % (37-53); Lymphocytes # 2.3 10^3/uL (0.8-4.8); Lymphocytes % 16.2 %; Mean Corpuscular HGB Conc 33.7 g/dL (30-55); Mean Platelet Volume 9.3 fL (7.4-10.4); Monocytes # 1.3 10^3/uL (0.2-0.9); Monocytes % 9.3 %; Neutrophils # 9.96 10^3/uL (1.8-7.7); Neutrophils % 70.9 %; Nucleated Red Blood Cells % 0 %; Platelet Count 292 10^3/cmm (157-399); Red Cell Distribution Width 13.7 % (12.1-15.1); White Blood Count 14.06 10^3/uL (3.29-11.43)
[2024-07-12 05:08] LABS: Alanine Aminotransferase 32 U/L (0-41); Albumin Level 3.4 g/dL (3.5-5.2); Alkaline Phosphatase 75 U/L (40-130); Anion Gap 17.7 (5-19); Aspartate Amino Transferase 22 U/L (0-40); Blood Urea Nitrogen 16 mg/dL (6-20); Calcium 8.5 mg/dL (8.5-10.5); Carbon Dioxide 23 mmol/L (22-29); Chloride 103 mmol/L (98-107); Creatinine Clr Calc Pharmacy 114.0883; Globulin 2.8 g/dL (1.3-4.6); Glomerular Filtration Rate 72.4 mL/min (90-130); Glucose 92 mg/dL (65-115); Osmolality Calculated 291 mOsm/kg (285-295); Potassium 3.7 mmol/L (3.5-5.1); Sodium 140 mmol/L (136-145); Total Bilirubin 0.8 mg/dL (0.15-1.2); Total Protein 6.2 g/dL (6.6-8.7)
[2024-07-12] MEDS: bisacodyl 10 mg Supp PR (07:58)
[2024-07-12] MEDS: lisinopril 20 mg Tablet PO (07:58)
[2024-07-12] MEDS: nicotine 21 mg Patch 1 PATCH TRANSDERMA (07:58)
[2024-07-12 08:00] VITALS: BP 136/85; PULSE 80; RESP 16; TEMP 36.6; O2SAT 95
--- NOTE | 2024-07-12 12:17 | P.PN_ITS ---
Subjective 2 Subjective: Passing gas, had a BM Still distended Pain is slightly improved Vitals/I&O/Wt Last Vital Signs Temp 98 F 07/12/24 08:00 Pulse 80 07/12/24 08:00 Resp 16 07/12/24 08:00 BP 136/85 07/12/24 08:00 Pulse Ox 95 07/12/24 08:00 O2 Del Method Room Air 07/12/24 08:00 07/11/24 07/12/24 07/12/24 22:59 06:59 14:59 Intake Total 1000 / 2212.5 Balance 1000 / 2212.5 Weight last 48 hrs Weight 260 lb Weight 260 lb 1 oz Physical Exam 2 Narrative: Chest: Unlabored breathing room air. No lymphadenopathy. Heart: Regular rate and rhythm. Abdomen: Soft, tender epigastrium, distended. No masses or lymphadenopathy. Data 07/12/24 04:26 07/12/24 04:26 A&P Assessment and plan (1) Pancreatitis: Plan 44-year-old male with acute pancreatitis. Etiology possible gallstones. Continue with bowel rest until 07/13/2024. He should follow-up as outpatient for elective cholecystectomy. Attestations 2 Medical Necessity Statement*: N/A Coding Level of Care Code 69278 Diagnoses Pancreatitis K85.90 Time Spent (min) 30
[2024-07-12 12:18] LABS: C.Diff PCR (Lab) NEGATIVE (Negative)
[2024-07-12] MEDS: metroNIDAZOLE IV 500 MG/100 ML PREMIX 100 MG IV (13:45)
[2024-07-12] MEDS: ciprofloxacin 400 MG/200 ML PREMIX 200 MG IV (13:46)
[2024-07-12] MEDS: acetaminophen 1,000 MG/100 ML PIGGYBACK 400 MG IV (13:50)
--- NOTE | 2024-07-12 15:07 | P.PN_ITS ---
Subjective 2 Subjective: This morning he is still having a lot of bloating, stopped passing flatus, has not had a BM, no eructation, and has not vomited since yesterday, but no appetite, having bothersome abdominal pain. Vitals/I&O/Wt Last Vital Signs Temp 98 F 07/12/24 08:00 Pulse 80 07/12/24 08:00 Resp 16 07/12/24 08:00 BP 136/85 07/12/24 08:00 Pulse Ox 95 07/12/24 08:00 O2 Del Method Room Air 07/12/24 08:00 07/12/24 07/12/24 07/12/24 06:59 14:59 22:59 Intake Total 1000 / 2212.5 Balance 1000 / 2212.5 Weight last 48 hrs Weight 117.934 kg Physical Exam 2 Narrative: Accompanied by multiple family members in the room. Later ambulating in the hallway. Const: COMMON NORMALS: patient oriented x3 and alert GENERAL APPEARANCE: c ooperative ORIENTATION/CONSCIOUSNESS: Yes awake HENMT: COMMON NORMALS: oropharynx normal Neck/C-Spine: COMMON NORMALS: no JVD Resp: COMMON NORMALS: normal respiratory effort and clear to auscultation bilaterally AUSCULTATION: clear to auscultation bilaterally Cardio: COMMON NORMALS: no JVD, regular rhythm, S1 normal heart sound present, S2 normal heart sound present and No murmurs present (Cardio) RHYTHM: regular rhythm HEART SOUNDS: S1 normal heart sound present and S2 normal heart sound present GI: COMMON NORMALS: Soft to palpation INSPECTION: Yes abdominal distension AUSCULTATION: Yes Hypoactive bowel sounds present PALPATION: Yes Soft to palpation Extremity: COMMON NORMALS: no joint enlargement and no pedal edema Neuro: COMMON NORMALS: patient oriented x3 and moves all extremities S ENSORIUM/ORIENTATION: Yes alert Skin: COMMON NORMALS: no rashes or lesions noted GENERAL SKIN EXAM: no rashes or lesions noted Data 07/12/24 04:26 07/12/24 04:26 A&P Assessment and plan (1) Ileus: This morning he reports feeling worse, weaker, still with abdominal distention bothersome abdominal pain, has stopped passing flatus, no vomiting since yesterday, no eructation, but no appetite. Noted sluggish bowel sounds present although still hypoactive. He reports decreased urine output, requested bladder scan, reviewed results noted 53 mL. Continues with gentle IV hydration, bowel rest. Toradol as needed for pain, added a dose of 1 g of acetaminophen IV. Additionally with leukocytosis, lack of improvement of abdominal pain, discussed starting IV antibiotics, ciprofloxacin, Flagyl, discussed risks of complication with antibiotics including C. difficile infection. Additionally he had passed some loose stool flakes, with possibility of colitis requested C. difficile, stool culture. He also has not eaten now for about 6 days, discussed addition of PPN and risks. Requested. His family additionally inquired about transfer to [facility] in [place], I checked with [facility], they called back stating they would not take him, do not have any beds open. He wanted to also try coffee. Later he approached me in the hallway, he is ambulating again, states that he has had additional flatus and passed 4 bowel movements after having coffee. He is going to ambulate some more and then would like to try clear liquids again in a few hours. Discussed with top case assembler. Nursing. Acute pancreatitis with major comorbidity with ileus. Pancreatitis improving. Ileus likely secondary to pancreatitis itself, inflammatory changes, pain, as well as opioids with him receiving morphine at the outside facility. Has received hydromorphone here. Discussed with him avoiding further opioids, if needed acetaminophen, Toradol for pain control. Monitor for risk of worsening gastritis with NSAID. IV PPI twice daily. At current time bowel rest with clear liquids, gentle IV hydration. Had been receiving IV fluids at outside facility. Currently does not appear fluid overloaded, but monitor for risk of fluid overload with IV fluids. Ambulate, discussed with him need for frequent ambulation while up on the medical floor. Dulcolax suppository. Ileus noted in transverse colon on CT. Had received enema at outside hospital without success. Depending on his response may have to escalate to decompression with NGT, rectal tube as per discussion with him, but trial of conservative measures first due to risks. (2) Pseudoobstruction of colon: As above. Additional assessment for possible complete obstruction as above. Continue IV hydration. Did not tolerate initial trial of oral diet. He has not had any bowel movement, no success with an enema, has not been passing flatus, significant abdominal distention which is quite bothersome to him, also causing dyspnea, new oxygen requirement of 2 L in the ER with hypoventilation, hyperexpansion of lower lungs noted on x-ray. He has never had a colonoscopy. Denies abdominal surgeries. Suspected ileus multifactorial secondary to acute pancreatitis, pain, as well as opioids. Additional management as above. Add incentive spirometer as well. (3) Pancreatitis: Lipase previously normalized. Will request repeat. Reviewed CBC, still leukocytosis but improving down to 14,000. Still bothered by ileus. Triglycerides, noted 274. Reviewed CT abdomen pelvis, noted tiny gallstone in the gallbladder. Reviewed gallbladder ultrasound, noted without CBD dilation or sign of obstruction. He denies drinking more than occasionally. No hypercalcemia. So far unclear cause of pancreatitis. Possibly related to smoking, but would benefit from follow-up with gastroenterology to further assess for other causes. At current time conservative management, avoid opioids due to symptomatic ileus as above with bowel pseudoobstruction, unable to take any oral intake. IV hydration. Monitor for fluid overload. Sips chips, medications for now with bowel rest. Reassess lipase. Pain control with Tylenol, Toradol as needed. Avoid opioids. Follow-up with GI. Plan Chronic NSAID use: Discussed with him to discontinue chronic diclofenac. For now we will transition PPI to IV twice daily. He had been taking diclofenac since having surgery on his right shoulder 7 weeks ago. Smoking addiction: Discussed smoking cessation with him for 5 minutes, he is not willing to quit at this time. He is willing to have nicotine replacement for cravings with nicotine patches, lozenges. Attestations 2 Medical Necessity Statement*: Continue admission for assessment and management of bowel obstruction, ileus, feculent vomiting, intolerance of oral intake, recovering from pancreatitis. and High MDM includes amount and/or complexity of data reviewed/ordered [ resulted lab(s)/test(s), ordered lab(s)/test(s) and other healthcare professional discussion] and described risk of complication, morbidity or mortality of management as documented Diagnoses Ileus K56.7 Pseudoobstruction of colon K59.81 Pancreatitis K85.90
[2024-07-12 16:00] VITALS: BP 136/86; PULSE 80; RESP 16; TEMP 36.6; O2SAT 95
[2024-07-12] MEDS: AA-Dex 4.25%-5% w/Lytes 1,000 ML 83 ML IV (17:31)
[2024-07-12 19:45] VITALS: BP 152/89; PULSE 86; RESP 19; TEMP 37.1; O2SAT 98
--- NOTE | 2024-07-12 23:26 | PC.NURSE ---
Awaiting US guided IV. IV antibiotics are late due to this.
[2024-07-13] VITALS: BP 130/84; PULSE 76; RESP 18; TEMP 36.8; O2SAT 97
[2024-07-13] MEDS: ciprofloxacin 400 MG/200 ML PREMIX 200 MG IV ×2 (00:19→14:35)
[2024-07-13] MEDS: pantoprazole 40 mg SDV IVP ×2 (00:19→14:36)
--- NOTE | 2024-07-13 00:29 | PC.NURSE ---
Multiple nurses attempt IV access including ED nurse with US machine. Unable to obtain 2nd IV line. Dr. Gordon notified and okayed to pause PPN long enough to run IV antibiotics and then resume PPN.
[2024-07-13] MEDS: metroNIDAZOLE IV 500 MG/100 ML PREMIX 100 MG IV ×2 (01:20→17:16)
[2024-07-13 02:56] VITALS: BP 150/84; PULSE 78; RESP 17; TEMP 36.8; O2SAT 98
[2024-07-13 04:50] LABS: Basophils % 0.3 %; Eosinophils # 0.3 10^3/uL (0.0-0.8); Eosinophils % 2.7 %; Hematocrit 35.8 % (37-53); Lymphocytes # 2.2 10^3/uL (0.8-4.8); Lymphocytes % 19.1 %; Mean Corpuscular HGB Conc 33.2 g/dL (30-55); Mean Corpuscular Hemoglobin 29.6 pg (27-33); Mean Corpuscular Volume 89.1 fl (82-101); Mean Platelet Volume 9.7 fL (7.4-10.4); Monocytes # 1.3 10^3/uL (0.2-0.9); Monocytes % 11.5 %; Neutrophils # 7.69 10^3/uL (1.8-7.7); Neutrophils % 65.8 %; Nucleated Red Blood Cells % 0 %; Platelet Count 337 10^3/cmm (157-399); Red Blood Count 4.02 10^6/uL (3.85-5.65); Red Cell Distribution Width 13.8 % (12.1-15.1); White Blood Count 11.68 10^3/uL (3.29-11.43)
[2024-07-13 05:12] LABS: Alanine Aminotransferase 42 U/L (0-41); Albumin Level 3.5 g/dL (3.5-5.2); Alkaline Phosphatase 98 U/L (40-130); Anion Gap 15.4 (5-19); Aspartate Amino Transferase 39 U/L (0-40); Blood Urea Nitrogen 15 mg/dL (6-20); Calcium 8.3 mg/dL (8.5-10.5); Carbon Dioxide 25 mmol/L (22-29); Chloride 103 mmol/L (98-107); Creatinine Clr Calc Pharmacy 114.0883; Glomerular Filtration Rate 72.4 mL/min (90-130); Glucose 119 mg/dL (65-115); Lipase 51 U/L (13-60); Osmolality Calculated 292 mOsm/kg (285-295); Potassium 3.4 mmol/L (3.5-5.1); Sodium 140 mmol/L (136-145); Total Bilirubin 0.6 mg/dL (0.15-1.2); Total Protein 6.5 g/dL (6.6-8.7)
[2024-07-13] MEDS: lisinopril 20 mg Tablet PO (05:34)
--- NOTE | 2024-07-13 06:32 | PC.NURSE ---
Dr. Valenzuela notified that the patient is requesting the following medications that he takes at home: fenofibrate, multivitamin, omega 3, and claritin.
[2024-07-13 07:44] VITALS: BP 142/84; PULSE 70; RESP 18; TEMP 36.8; O2SAT 96
[2024-07-13] MEDS: aspirin 81 mg EC Tablet PO (09:04)
[2024-07-13] MEDS: nicotine 21 mg Patch 1 PATCH TRANSDERMA (09:16)
--- NOTE | 2024-07-13 09:28 | CTR_ITS ---
PROCEDURE INFORMATION: Exam: CT Abdomen And Pelvis With Contrast Exam date and time: 07/13/2024 12:26 PM Age: 44 years old Clinical indication: Abdominal pain; Generalized; Additional info: Pseudoobstruction vs obstruction TECHNIQUE: Imaging protocol: Computed tomography of the abdomen and pelvis with contrast. Radiation optimization: All CT scans at this facility use at least one of these dose optimization techniques: automated exposure control; mA and/or kV adjustment per patient size (includes targeted exams where dose is matched to clinical indication); or iterative reconstruction. Contrast material: OMNI 350; Contrast volume: 100 ml; Contrast route: INTRAVENOUS (IV); Other contrast: Oral, OMNI 350, 25ML; COMPARISON: CT abdomen pelvis w con* [id number] 07/10/2024 10:17 AM RADIATION DOSE METRICS: Total DLP (mGy-cm): 1187.38 FINDINGS: Liver: Diffuse hepatic steatosis. Hepatomegaly. Gallbladder and biliary ducts: Multiple calcified gallstones are present. Pancreas: There is peripancreatic inflammatory stranding and fluid, concerning for acute pancreatitis. Spleen: The spleen demonstrates punctate calcifications, consistent with remote granulomatous organism exposure. Adrenal glands: Normal. No mass. Kidneys and ureters: Normal. No hydronephrosis. Stomach and bowel: Periduodenal stranding and wall thickening concerning for duodenitis. No obstruction. Appendix: No evidence of appendicitis. Intraperitoneal space: Unremarkable. No free air. No significant fluid collection. Vasculature: Hepatic veins and portal veins are patent. Lymph nodes: Periportal enlarged lymph node measuring 1.2 centimeters (series 5, image 35). Urinary bladder: Unremarkable as visualized. Reproductive: Unremarkable as visualized. Bones/joints: Unremarkable. No acute fracture. Soft tissues: Soft tissue stranding along the right milena hepatis surrounding the portal vein and duodenal and pancreas. CT/CT abdomen pelvis w con* [id number] IMPRESSION: 1. No mechanical bowel obstruction. 2. Soft tissue stranding along the pancreatic head /uncinate process and duodenum. Imaging findings suspicious for acute pancreatitis, correlate with lipase levels. 3. Periduodenal stranding and wall thickening concerning for duodenitis. 4. Cholelithiasis. 5. Diffuse hepatic steatosis. Hepatomegaly.
[2024-07-13] MEDS: loratadine 10 mg Tablet PO (10:11)
[2024-07-13] MEDS: fenofibrate 145 mg Tablet PO (10:11)
[2024-07-13] MEDS: potassium chloride ER 20 mEq Tablet 40 MEQ PO (10:14)
--- NOTE | 2024-07-13 11:51 | P.PN_ITS ---
Subjective 2 Subjective: Passing gas No bowel movement Still distended No pain Vitals/I&O/Wt Last Vital Signs Temp 98.3 F 07/13/24 07:44 Pulse 70 07/13/24 07:44 Resp 18 07/13/24 07:44 BP 142/84 07/13/24 07:44 Pulse Ox 96 07/13/24 07:44 O2 Del Method Room Air 07/13/24 07:44 07/12/24 07/13/24 07/13/24 22:59 06:59 14:59 Intake Total 1950.333 / 1950.333 510.083 / 2460.416 Balance 1950.333 / 1950.333 510.083 / 2460.416 Weight last 48 hrs Weight 260 lb Physical Exam 2 Narrative: Chest: Unlabored breathing room air. No lymphadenopathy. Heart: Regular rate and rhythm. Abdomen: Soft, nontender, distended. No masses or lymphadenopathy. Data 07/13/24 03:46 07/13/24 03:46 A&P Assessment and plan (1) Pancreatitis: Plan 44-year-old male admitted with pancreatitis. Pancreatitis is significantly improved. Patient still has an ileus. He is passing gas but he complains of inability to have a bowel movement. I have explained that this is expected from his ileus secondary to pancreatitis. He is worried that his stools have lately been thin in caliber he has had some tenesmus and weeks prior. Will repeat a CT scan abdomen pelvis with p.o. contrast, try enema this afternoon, and see how he does in the morning. Attestations 2 Medical Necessity Statement*: Pending Coding Level of Care Code 15732 Diagnoses Pancreatitis K85.90 Time Spent (min) 30
[2024-07-13 12:00] VITALS: BP 165/96; PULSE 68; RESP 18; TEMP 36.7; O2SAT 98
[2024-07-13] MEDS: iohexol 350 mg/mL 500 mL Btl (per mL) IV (12:30)
[2024-07-13 16:00] VITALS: BP 137/84; PULSE 80; RESP 17; O2SAT 98
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
--- NOTE | 2024-07-13 19:38 | PC.NURSE ---
pt reported pain with 1700 med pass, pt did not have order for tordol at that time. educ pt that he had tylenol available pt refused, stated it will not help. in room and educ pt why he only had the tylenol ordered.
[2024-07-13 20:14] VITALS: BP 146/82; PULSE 72; RESP 17; TEMP 36.7; O2SAT 98
== END 2024-07-13 20:10 | disposition home or self-care (01) | DRG 439 ==
LOC: ER 12:11 → MEDSURG 13:04
PROVIDERS: Family Medicine; Admitting Provider Internal Medicine; Emergency Provider Emergency Medicine; PCP Nurse Practitioner Family; Visit Provider Internal Medicine
DX: K85.90 Acute pancreatitis without necrosis or infection, unspecified (principal); K56.7 Ileus, unspecified; I25.10 Atherosclerotic heart disease of native coronary artery without angina pectoris; E78.00 Pure hypercholesterolemia, unspecified; E53.8 Deficiency of other specified B group vitamins; E78.5 Hyperlipidemia, unspecified; F17.210 Nicotine dependence, cigarettes, uncomplicated; K59.81 Ogilvie syndrome; Z79.82 Long term (current) use of aspirin; Z79.899 Other long term (current) drug therapy
CPT/HCPCS: 36415; 51798; 71045; 74177; 76705; 80053; 81001; 83605; 83690; 83735; 84100; 84478; 85025; 87045; 87427; 87449; 87493; 93005; 96374; 96375; 99285; J0131; J0744; J1170; J1885; J2060; J2405; J2470; J3490; J7030; J7120

== ENCOUNTER 2025-04-29 15:55 | Emergency (ER) | payer SELFPAY ==
[2025-04-29 15:55] VITALS: BP 126/89; PULSE 87; RESP 16; TEMP 36.5; O2SAT 98; BMI 31.6
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
--- OUTSIDE RECORDS SUMMARY | 2025-04-29 16:02 | XMS_ITS | Patient Health Record ---
Author Organization [facility] Address [address] [place] [address] Care Team Providers Care Implementation Project Manager Name Role Phone Dior Guerrero Primary Care Provider DIOR GUERRERO Unavailable Unavailable Mary Gay Unavailable Allergies Allergen (clinical drug ingredient) Drug/Non Drug Allergy documented on EMR Reaction Allergy Type Onset Date Status No Known Drug Allergy Unknown Drug Allergy Active Results Component Value Reference Range Notes COVID 19 PCR--[id number] Reviewed date:11/25/2024 03:44:27 PM Interpretation: Performing Lab: Notes/Report: COVID 19 PCR negative Influenza A/B PCR-- [id number] Reviewed date:11/25/2024 03:30:39 PM Interpretation: Performing Lab: Notes/Report: Influenza B PCR negative Influenza A PCR positive Strep Screen A [id number] Reviewed date:11/25/2024 03:30:55 PM Interpretation: Performing Lab: Notes/Report: Strep Screen A negative Reason For Referral Reason SCREENING Diagnosis 1 Screening for colon cancer (Z12.11) Referring Provider First Name DIOR Referring Provider Last Name YOLANDA Referring Provider Speciality Family Pra ctice Referred Organization [facility] Referred Provider Mary Gay Referred Address [address],[address], Referral Priority Routine Reason Screening Diagnosis 1 Screening for colon cancer (Z12.11) Referral Organization [facility] [place] [facility] Referring Provider First Name Dior Referring Provider Last Name Yolanda Referring Provider Speciality Nurse Helga vazquez Referred Provider MARY GAY Referred Provider Specialty Internal Med icine General Notes Terri Jay 07/16 09:29:51 AM >faxed Referral Priority Routine Reason Long history of symp tomatic cholelithiasis. Diagnosis 1 Gall stone pancreati tis (K85.10) Referral Organization [facility] Referring Provider First Name Pola basurto Referring Provider Last Name Sarah Referring Provider Speciality Internal M edicine Referred Provider Meka Nunes Referred Provider Specialty General Surg yeison General Notes Yanira Gutierrez 10:32:46 AM >Faxed Chalo Langston Heidi 07/30/2024 09:15:22 AM >PER FAX HE IS SCHEDULED 08/05 @ 2:30, Sushma Isabel 08/20/2024 08:55:08 AM >PROGRESS NOTES IN REFERRAL FILE Referral Priority Routine Referral Appointment Date 08/05/2024 Medications Medication SIG (Take, Route, Frequency, Duration) Notes Start Date End Date Status Lisinopril 20 MG 1 tablet Orally Once a day for 30 days Active Oseltamivir Phosphate 75 MG 1 capsule Orally Twice a day for 5 days 11/25/2024 Active Pantoprazole Sodium 40 MG 1 tablet Intra venous Once a day for 30 days Active Loratadine 10 mg TAKE ONE TABLET BY MOUTH ONCE DAILY for 90 Active Multivitamin - 1 tablet Orally Once a day Not-Taking Vitamin B12 1000 MCG as directed Orally Not-Taking Fenofibrate 145 mg TAKE ONE TABLET BY MOUTH EVERY DAY for 90 Active Aspirin 81 81 MG 1 tablet Orally Once a day Not-Taking Lisinopril-hydroCHLOROthi azide 20-25 MG TAKE ONE TABLET BY MOUTH EVERY DAY for 90 Not-Takin g Cipro 500 MG 1 tablet Orally ever y 12 hrs Not-Taking Fish Oil 1000 MG 1 capsule Orally Onc e a day Not-Taking Immunizations Vaccine Route Administration Date Status Comme nts Flucelvax Trivalent, Syringe 0.5 mL, PF Unknown 024 Refused Social History Tobacco Use: Social History Observation Description Date Details (start date - stop date) Current Smoker NA - NA PHQ-9 Question Answer Notes Little interest or pleasure in doing things Not at all Feeling down, depressed, or hopeless Not at all Trouble falling or staying asleep, or sleeping t oo much Not at all Feeling tired or having little energy Not at all Poor appetite or overeating Not at all Feeling bad about yourself, or that you are a failure, or have let yourself or your family down Not at all Trouble concentrating on thi ngs, such as reading the newspaper or watching television Not at all Moving or speaking so slowly that other people could have noticed. Or the opposite ? being so fidgety or restless that you have been moving around a lot more than usual Not at all Thoughts that you would be b yevgeniy off , or of hurting yourself in some way Not at all Total Score 0 Tobacco Control (Standard) Question Answer Notes Tobacco use: Current smoker How often do you smoke cigarettes? Every day How many cigarettes a day do you smoke? - AUDIT-C (Standard) Question Answer Notes Did you have a drink contain ing alcohol in the past year? Yes How often did you have six o r more drinks on one occasion in the past year? Less than monthly (1 point) How many drinks did you have on a typical day when you were drinking in the past year? 1 or 2 drinks (0 point) How often did you have a dri nk containing alcohol in the past year? Monthly or less (1 point) Points 2 Interpretation Negative Section Notes: 12/18/20 03/08/22 12/18/20 12/18/20 03/08/22 12/18/20 03/08/22 12/18/20 03/08/22 12/18/20 03/08/22 alcohol - occasionally caffeine - 5 cups coffee, tea throughout the day, 2 red bulls drug use - negative alcohol - occasionally caffeine - 5 cups coffee, tea throughout the day, 2 red bulls drug use - negative alcohol - occasionally caffeine - 5 cups coffee, tea throughout the day, 2 red bulls drug use - negative 07/16/24 PHQ9 12/18/20 12/18/20 03/08/22 alcohol - occasionally caffeine - 5 cups coffee, tea throughout the day, 2 red bulls drug use - negative alcohol - occasionally caffeine - 5 cups coffee, tea throughout the day, 2 red bulls drug use - negative 07/16/24 PHQ9 alcohol - occasionally caffeine - 5 cups coffee, tea throughout the day, 2 red bulls drug use - negative 2/12/18/20 12/18/20 03/08/22 12/18/20 03/08/22 alcohol - occasionally caffeine - 5 cups coffee, tea throughout the day, 2 red bulls drug use - negative 07/16/24 PHQ9 07/16/24 PHQ9 Problems Problem Type SNOMED Code ICD Code Onset Dates Problem Status W/U Status Risk Notes Problem 788101534 Mixed hyperlipidemia (E78.2) Active confirmed Problem 12381512 Nicotine dependence, cigarettes, uncomplicated (F17.210) Active confirmed Problem 87971658 Other chronic pain (G89.29) Active confirmed Problem Essential hypertension (58232038) Essential (primary) hypertension (I10) Active confirmed Problem Shortness of breath (729582984) Shortness of breath (R06.02) Active confirmed Problem 375768550 Erectile dysfunction, unspecified erectile dysfunction type (N52.9) Active confirmed Problem 83879317 Hypertension, unspecified type (I10) Active confirmed Problem 08968054 Right sided sciatica (M54.31) Active confirmed Problem 52194822 Dysphagia, unspecified type (R13.10) Active confirmed Problem 71537059 Sexual dysfunction (R37) Active confirmed Problem 519794274 Seasonal allergies (J30.2) Active confirmed Problem 951784798 Fatty liver (K76.0) Active confirmed Problem 70798246 Tobacco dependence (F17.200) Active confirmed Problem 70497505 Right shoulder pain, unspecified chronicity (M25.511) Active confirmed Problem 622488487 Shoulder weaknes s (R29.898) Active confirmed Problem Gastroesophageal reflux disease (641256764) GERD (gastroesophageal reflux disease) (K21.9) Active confirmed Problem Abnormal ECG (502616954) Abnormal ECG (R94.31) Active confirmed Problem Edema of lower extremity (684220110) Edema of lower extremity (R60.0) Active confirmed Problem 315631151 Decreased right shoulder range of motion (M25.611) Active confirmed Vital Signs Heart Rate 102 /min 11/25/2024 Temperature 97.6 degrees Fahrenheit 11/25/2024 Respiratory Rate 20 /min 11/25/2024 Height-cm 182.88 cm 11/25/2024 Oximetry 98 % 11/25/2024 Blood pressure diastolic 74 mm Hg 11/25/2024 Weight-kg 111.58 kg 11/25/2024 Height 72 in 11/25/2024 Blood pressure systolic 128 mm Hg 11/25/2024 Weight 246 lbs 11/25/2024 BMI 33.36 kg/m2 11/25/2024 Encounters Encounter Location Date Provider Diagnosis [facility] [address] [address] 07/16/2024 Dior Guerrero Acute pancreatitis due to infection K85.90 ; Essential (primary) hypertension I10 ; GERD (gastroesophageal reflux disease) K21.9 ; Headache R51.9 ; Screening for colon cancer Z12.11 and Depression screen Z13.31 [facility] [address] [address] 07/25/2024 Santosgregg Gay Gall stone pancreatitis K85.10 ; Calculus of gallbladder with acute on chronic cholecystitis with obstruction K80.13 and Depression screen Z13.31 [facility] [address] [address] 09/19/2024 Dior Guerrero Acute otitis media, right H66.91 ; Encounter for immunization Z23 and Immunization not carried out because of patient refusal Z28.21 [facility] [address] [address] 11/25/2024 Dior Guerrero Influenza A J10.1 Assessments Encounter Date Diagnosis (ICD Code) Assessment Notes Treatment Notes Treatment Clinical Notes Section Notes 07/16/2024 Essential (primary) hypertension (ICD-10 - I10) 07/16/2024 Acute pancreatitis due to infection (ICD-10 - K85.90) Finish Cipro and Flagyl. Continue bland/soft diet. Recheck 1 week, return ED if symptoms become worse. 07/25/2024 Gall stone pancreatitis (ICD-10 - K85.10) 07/25/2024 Calculus of gallbladder with acute on chronic cholecystitis with obstruction (ICD-10 - K80.13) 09/19/2024 Acute otitis media, right (ICD-10 - H66.91) Increase fluids, take medication as directed. RTC if no improvement with treatment. 11/25/2024 Influenza A (ICD-10 - J10.1) Increase fluids, take medication as directed. RTC if no improvement with treatment. 09/19/2024 Encounter for immunization (ICD-10 - Z23) 07/25/2024 Depression screen (ICD-10 - Z13.31) 07/16/2024 GERD (gastroesophageal reflux disease) (ICD-10 - K21.9) 07/16/2024 Headache (ICD-10 - R51.9) Toradol injection given. 09/19/2024 Immunization not carried out because of patient refusal (ICD-10 - Z28.21) 07/16/2024 Screening for colon cancer (ICD-10 - Z12.11) 07/16/2024 Depression screen (ICD-10 - Z13.31) Plan Of Treatment Pending Test Test Name Order Date CT Cardiac Scoring Diagnostic-[id number] 01/29 Insurance Providers Payer Name Payer Address Payer Phone Subscriber Number Group Number Insured Name Patient Relationship to Insured Coverage Start Date Coverage End Date Maurice [address] [place], [place] [phone] [id number] Curtis Maya Self - patient is the insured 5 Medications Administered Medication Instructions Date of Administration Dosage Notes Ketorolac Tromethamine 12/20/2021 60 mg Ketorolac Tromethamine 07/18/2022 60 mg nd [id number] Ketorolac Tromethamine 07/16/2024 60 mg nd [id number] Patient tolerated well. Medical (General) History Medical History History ICD Code Hypertension Mixed hyperlipidemia Dysphagia, unspecified type migraine headaches hernia Surgical History Surgery Date(Month/Year) RT Shoulder Labral Repair 05/03/23 Teeth Extraction Hospitalization History Reason Date(Month/Year) O[facility]-pancreatitis 06/2024 [facility] - stress sachin t when he was in [facility] because he felt like he was having a heart attack 2018
[2025-04-29] MEDS: methylPREDNISolone sod succ 125 mg/2 mL INJ IVP (16:18)
--- NOTE | 2025-04-29 16:25 | PC.NURSE ---
this nurse contacted poison control, they stated skin irritation is most common symptom. symptomatic [place]. this nurse told Dr. Estevez what poison control said.
[2025-04-29 16:55] VITALS: BP 120/90; PULSE 89; O2SAT 99
== END 2025-04-29 17:02 | disposition home or self-care (01) ==
PROVIDERS: Emergency Provider Family Medicine; PCP Nurse Practitioner Family
DX: T59.891A Toxic effect of other specified gases, fumes and vapors, accidental (unintentional), initial encounter (principal); Z79.82 Long term (current) use of aspirin; Z72.0 Tobacco use; I25.10 Atherosclerotic heart disease of native coronary artery without angina pectoris; X58.XXXA Exposure to other specified factors, initial encounter
CPT/HCPCS: 36415; 71045; 96374; 99284; J2919